=== PATIENT | female | born 1990 | race American Indian/Alaskan Native ===

== ENCOUNTER 2020-11-09 20:41 | Inpatient (IN) | payer BC, MEDICAID ==
--- NOTE | 2020-11-09 22:05 | History and Physical Report ---
History of Present Illness Date of examination: 11/09/20 (IUFD diagnosed on 20 wk scan) Date of admission: 11/09/20 20:41, pt not actually in room until 2144. Chief complaint: My baby doesn't have a heart beat. History of present illness: Pt presented for 20 week visit and scan 11/08 and it was discovered that there was no FHR. Pt wanted time to process the IUFD and went home after visit. She then called the office on 11/09 and wanted to get the IOL process started. EDC Confirmation: 03/29/2021 Gestational Age: 20 weeks on admission Past History : 3 Term Births: 1 Premature Births: 0 Living Children: 1 Para: 1 Mult. Births: 0 Prev : 0 Aborta: 1 Elect. Ab: 0 Spont. Ab: 1 Ectopics: 0 # 1 Delivery date: 2011 Weeks Gestation: 40 labor: no Delivery type: Hours of labor: 12 Anesthesia type: epidural Delivery location: [facility] Infant Sex: Female weight: [id number] Comments: no complications # 2 Delivery date: 2014 Weeks Gestation: 16 Delivery type: SAB Hours of labor: 24 Anesthesia type: none Delivery location: [facility] Comments: fell chasing after 1y.o and broke wrist, no FHTs, received medications in hospital Past Medical History: Negative Past Medical History Past Surgical History: negative Past Medical History Anesthesia Complications: negative Anemia: negative Autoimmune Disorder: negative Bleeding Disorder: negative Blood Transfusions: negative Breast Disease: negative Diabetes: negative Heart Disease: negative Hypertension: negative Hepatitis/Liver Disease: negative Kidney Disease/UTI: negative Neurologic/Epilepsy/Migraines: negative Phlebitis/Varicosities: negative Psychiatric: negative Pulmonary Disease/Asthma: negative Thyroid Disease: negative Hospitalizations: negative Surgery (Non-etl data architect): negative Abnormal PAP: positive, +HPV several years ago, negative result 2020 EDUARDO Exposure: negative Infertility: negative Uterine Anomaly: negative Uterine Surgery (not C/S): negative Other Gynecologic Problems: negative Infection History Hx of STD: HPV HIV Risk Eval: no Hepatitis B Risk Eval: low risk Personal hx. of genital herpes: no Partner hx. of genital herpes: no Rash, Viral, or Febrile illness since last LMP? no Varicella/Chicken Pox Status: Previous Disease TB Risk: no Genetic History Congenital Heart Defect: Mom: no Dad: no Dimple Disease: Mom: no Dad: no Thalassemia Mom: no Dad: no Neural Tube Defect Mom: no Dad: no Down's Syndrome Mom: no Dad: no Denver-Sachs Mom: no Dad: no Sickle Cell Disease/Trait Mom: no Dad: no Hemophilia Mom: no Dad: no Muscular Dystrophy Mom: no Dad: no Cystic Fibrosis Mom: no Dad: no Todd Chorea Mom: no Dad: no Mental Retardation Mom: no Dad: no Fragile X Mom: no Dad: no Other Genetic/Chromosomal Disorder Mom: no Dad: no Child w/other defect Mom: no Dad: no Enviromental Exposures Enviromental Exposures Reviewed Xray Exposure: no Medication, drug, or alcohol use since LMP: no Chemical/Other Exposure: no Exposure to Cat Liter: no Hx of Parvovirus (Fifth Disease): no Occupational Exposure to Children: none Current Allergies (reviewed today): * PCN (Critical) Past History Past Medical History: no pertinent history Past Surgical History: no surgical history Family/Genetic History: none Social history: no significant social history - Obstetrical History : 3 Para: 1 Hx # Term Pregnancies: 0 Number of Pregnancies: 0 Spontaneous Abortions: 1 (No FHR @ 16 wks. ) Induced : 0 Number of Living Children: 1 Medications and Allergies Allergies Allergy/AdvReac Type Severity Reaction Status Date / Time Penicillins Allergy Intermediate Hives Unverified 04/17/14 19:45 Home Medications Medication Instructions Recorded Confirmed Last Taken Type No Known Home Medications [No 04/19/14 04/19/14 Unknown History Reported Home Medications] Review of Systems All systems: negative - Physical Exam Breasts: Positive: deferred Cardiovascular: Regular rate Lungs: Positive: Normal air movement Genitourinary (Female): Positive: normal external genitalia, normal perenium Vulva: both: normal Vagina: Positive: normal moisture Uterus: Positive: normal size Extremities: Positive: normal - Obstetrical Cervical Dilatation: 0 Cervical Effacement Percentage: 0 station: -4 Results All other labs normal. Will draw admission labs and labs. Assessment and Plan A: 30 y.o. @ 20 weeks, IOL d/t IUFD. Cervical exam: cl/th/hi. - Patient Problems (1) 20 or more weeks gestation of Current Visit: Yes Status: Acute (2) IUFD at 20 weeks or more of gestation Current Visit: Yes Status: Acute Plan to address problem: Admit to labor and delivery. Draw and admission labs. Initiate IV. Cytotec 400mcg to start IOL process. Anticipate .
[2020-11-09] MEDS ORDERED: ePHEDrine SULFATE 50 MG/1 ML INJ IV PRN (22:08)
[2020-11-09] MEDS ORDERED: MINERAL OIL 30 ML ORAL LIQD PO PRN (22:08)
[2020-11-09] MEDS ORDERED: METHYLERGONOVINE MALEATE 0.2 MG/ML VIAL IM PRN (22:08)
[2020-11-09] MEDS ORDERED: NALOXONE 0.4 MG/1 ML INJ IV PRN (22:08)
[2020-11-09] MEDS ORDERED: fentaNYL 100 MCG/2 ML INJ IV PRN (22:08)
[2020-11-09] MEDS ORDERED: LOPERAMIDE 2 MG CAP PO PRN (22:08)
[2020-11-09] MEDS ORDERED: miSOPROStol 200 MCG TAB PR PRN (22:08)
[2020-11-09] MEDS ORDERED: CARBOPROST TROMETHAMINE 250 MCG/1 ML INJ IM PRN (22:08)
[2020-11-09] MEDS ORDERED: ONDANSETRON 4 MG/2 ML INJ IV PRN (22:08)
[2020-11-09] MEDS ORDERED: TERBUTALINE 1 MG/1 ML INJ SUB-Q PRN (22:08)
[2020-11-09] MEDS ORDERED: OXYTOCIN 10 UNIT/1 ML INJ IM PRN (22:08)
[2020-11-09] MEDS ORDERED: PROMETHAZINE 25 MG TAB PO PRN (22:08)
[2020-11-09] MEDS ORDERED: miSOPROStol 200 MCG TAB VG ONE (22:11)
[2020-11-09] MEDS ORDERED: ACETAMINOPHEN 500 MG TAB PO PRN (22:15)
[2020-11-09] MEDS ORDERED: LACTATED RINGERS 1,000 ML IV SCH (22:15)
[2020-11-09] MEDS ORDERED: OXYTOCIN DRIP 30 UNITS/500 ML BAG IV SCH (23:00)
[2020-11-09 23:41] LABS: Hematocrit 37.9 % (30.3-42.9); Hemoglobin 12.8 gm/dl (10.1-14.3); Mean Corpuscular HGB Conc 34 % (30-34); Mean Corpuscular Volume 90 fl (79-97); Platelet Count 307 K/mm3 (140-440); Red Blood Count 4.23 M/mm3 (3.65-5.03); Red Cell Distribution Width 13.7 % (13.2-15.2)
[2020-11-10] MEDS: BUTORPHANOL 2 MG/1 ML INJ IV PRN ×5 (00:48→11:46)
[2020-11-10 00:51] LABS: Hepatitis C Virus Antibody Non-Reactive (NonReactive)
[2020-11-10] MEDS ORDERED: miSOPROStol 200 MCG TAB VG ONE (05:15)
--- NOTE | 2020-11-10 05:18 | Event Note ---
Date: 11/10/20 (400mcg Cytotec placed) Placed a second dose of 400 mcg of Cytotec vaginally. Cervical exam still cl/th/hi. Pt denies vaginal bleeding, cramping/contractions, LOF. We discussed should any of these symptoms occur she will need to tell the RN immediately. Pt verbalized understanding.
--- NOTE | 2020-11-10 10:41 | Progress Note ---
Assessment and Plan - Patient Problems (1) 20 or more weeks gestation of Current Visit: Yes Status: Acute (2) IUFD at 20 weeks or more of gestation Current Visit: Yes Status: Acute Plan to address problem: -cont with IOL -cytotec at 11am and q4hrs until progression of labor -pain management d/w pt -plan of care d/w pt with RN at the bedside. All questions were addressed and answered. Subjective - Subjective Date of service: 11/10/20 Principal diagnosis: 20 wks IUFD Interval history: Pt inquired about the meds being given for the IOL and the pain she is having stating that previously the process was a lot quicker and "I only got one medicine for the pain and my inducement." I d/w that she is having her second delivery and she is further also and that due to having labor after a fall previously, she may have had more dilation compared to now where is is not dialated. I d/w serial IOL and that this process can sometimes take days until delivery. I d/w that the plan is to place more cytotec at 11am and proceed based on her progression this will determine if pitocin is then started or cervidil is given. She expressed understanding and questions were addressed and answered. Patient reports: new complaints, contractions Objective - Vital Signs Vital Signs: Vital Signs - 12hr 11/10/20 11/10/20 11/10/20 05:03 05:07 06:03 Temperature 98.2 F Pulse Rate 62 74 Respiratory 18 Rate Blood Pressure 115/57 106/58 O2 Sat by Pulse Oximetry 11/10/20 11/10/20 11/10/20 07:07 08:03 09:03 Temperature Pulse Rate 62 71 74 Respiratory Rate Blood Pressure 109/58 99/53 101/58 O2 Sat by Pulse Oximetry 11/10/20 11/10/20 11/10/20 10:00 10:03 10:11 Temperature 98 F Pulse Rate 86 81 Respiratory 20 Rate Blood Pressure 131/82 O2 Sat by Pulse 95 Oximetry 11/10/20 11/10/20 11/10/20 10:16 10:21 10:26 Temperature Pulse Rate 67 76 81 Respiratory Rate Blood Pressure O2 Sat by Pulse 96 96 97 Oximetry 11/10/20 10:31 Temperature Pulse Rate 73 Respiratory Rate Blood Pressure O2 Sat by Pulse 95 Oximetry - Exam Lungs: Normal air movement Abdomen: Present: normal appearance, soft. Absent: distention, tenderness, guarding Cervical Dilatation: 0.5 Cervical Effacement Percentage: 30 station: -3 - Labs Labs: Laboratory Results - last 24 hr 11/09/20 11/09/20 11/09/20 22:21 22:21 22:21 WBC 7.3 RBC 4.23 Hgb 12.8 Hct 37.9 MCV 90 MCH 30 MCHC 34 RDW 13.7 Plt Count 307 Syphilis IgG Antibody Nonreactive Hep Bs Antigen Hepatitis C Antibody HIV 1&2 Antibody Rapid HIV P24 Antigen Rubella IgG Antibody Blood Type O POSITIVE Antibody Screen Negative 11/09/20 11/09/20 11/09/20 22:21 22:21 22:21 WBC RBC Hgb Hct MCV MCH MCHC RDW Plt Count Syphilis IgG Antibody Hep Bs Antigen Non-reactive Hepatitis C Antibody Non-reactive HIV 1&2 Antibody Rapid Non react HIV P24 Antigen Non react Rubella IgG Antibody Immune Blood Type Antibody Screen
[2020-11-10] MEDS ORDERED: PROMETHAZINE 25 MG RECT SUPP PR PRN (12:06)
[2020-11-10] MEDS ORDERED: LANOLIN/ZINC/DIMETHICONE (LANSINOH) 7 GM TP PRN (12:06)
[2020-11-10] MEDS ORDERED: ONDANSETRON 4 MG/2 ML INJ IV PRN (12:06)
[2020-11-10] MEDS ORDERED: diphenhydrAMINE 25 MG CAP PO PRN (12:06)
[2020-11-10] MEDS ORDERED: MAGNESIUM HYDROXIDE (MOM) ORAL LIQD UDC PO PRN (12:06)
[2020-11-10] MEDS ORDERED: ACETAMINOPHEN 325 MG TAB PO PRN (12:06)
[2020-11-10] MEDS ORDERED: WITCH HAZEL/ GLYCERIN PAD TP PRN (12:06)
[2020-11-10] MEDS ORDERED: PROMETHAZINE 25 MG TAB PO PRN (12:06)
--- NOTE | 2020-11-10 12:06 | Procedure Note ---
OB Delivery Note - Delivery Date of Delivery: 11/10/20 Estimated blood loss: 100cc - Vaginal Delivery presentation: unknown Delivery induction: misoprostol Delivery laceration: none Delivery comments: Called to room by rn as pt had delivered fetus in the bed. When I arrived placenta was still attached. Cord cut and placenta delivered intact with gental tug and guidance out of the vagina as on initial exam the placenta was sitting in the vagina. Evalution of the the placenta notes brownish coloration of the fluid with odor as well as the placenta appears to have delivered intact. Due to pt discomfort, uterine sweep was not done. Will monitor bleeding for now and do sweep is bleeding becomes brisk. Cx still dilated on exam but unable to determine how dialted. Pt is stable in LDR requesting to eat at this time.
[2020-11-10] MEDS ORDERED: IBUPROFEN 600 MG TAB PO SCH (13:00)
[2020-11-11 01:56] LABS: Hemoglobin 11.3 gm/dl (10.1-14.3)
[2020-11-11] MEDS ORDERED: TETANUS,DIPH,PERTUSS(ACELL) VACCINE 0.5 ML SYRINGE IM ONE (06:00)
--- NOTE | 2020-11-11 07:26 | Progress Note ---
Assessment and Plan - Patient Problems (1) 20 or more weeks gestation of Current Visit: Yes Status: Acute (2) IUFD at 20 weeks or more of gestation Current Visit: Yes Status: Acute (3) Vaginal delivery Current Visit: Yes Status: Acute Plan to address problem: -routine pp care -d/c home this am Subjective - Subjective Date of service: 11/11/20 Principal diagnosis: PPD#1 s/p of IUFD @ 20 wks Interval history: Pt doing well. no c/o at this time. She inquired bout paper work for her job. She was advised to bring to the office on tomorrow and leave for completion. She and s/o expressed understanding. All other questions were addressed and answered Patient reports: appetite normal, pain well controlled Objective - Vital Signs Latest vital signs: Vital Signs Temp Pulse Resp BP BP Pulse Ox Pulse Ox 11/11/20 07:06 18 11/11/20 06:06 18 11/11/20 04:24 98.1 F 67 20 116/74 99 11/11/20 00:30 97.9 F 65 20 114/76 98 11/10/20 20:00 100 11/10/20 19:44 98.5 F 72 20 115/68 99 11/10/20 16:45 98 F 71 20 115/66 99 99 11/10/20 12:55 69 120/72 11/10/20 12:39 77 110/60 11/10/20 12:34 77 108/57 11/10/20 12:29 83 114/61 11/10/20 12:25 98 H 97 11/10/20 12:20 92 H 98 11/10/20 12:15 103 H 98 11/10/20 12:10 99 H 98 11/10/20 12:05 98 H 98 11/10/20 12:03 90 104/55 11/10/20 12:00 100 H 97 11/10/20 11:55 95 H 98 11/10/20 11:50 83 99 11/10/20 11:45 98 F 87 100 11/10/20 11:40 75 100 11/10/20 11:35 72 100 11/10/20 11:30 82 99 11/10/20 11:25 96 H 99 11/10/20 11:20 81 100 11/10/20 11:15 76 98 11/10/20 11:13 73 93 11/10/20 11:10 77 98 11/10/20 11:05 79 99 11/10/20 11:03 80 106/60 11/10/20 11:00 69 97 11/10/20 10:55 69 96 11/10/20 10:50 70 98 11/10/20 10:45 77 98 11/10/20 10:40 74 96 11/10/20 10:31 73 95 11/10/20 10:26 81 97 11/10/20 10:21 76 96 11/10/20 10:16 67 96 11/10/20 10:11 81 95 11/10/20 10:03 86 131/82 11/10/20 10:00 98 F 20 11/10/20 09:03 74 101/58 11/10/20 08:03 71 99/53 Intake and Output 11/10/20 11/11/20 11/11/20 22:59 06:59 14:59 Intake Total 360 360 Output Total 850 600 Balance -490 -240 Intake: Oral 120 120 Intake, Free Water 240 240 Output: Urine 850 600 Void 850 600 Other: Total, Intake Amount 120 120 Total, Output Amount 350 600 # Voids Void 1 - Exam Cardiovascular: Present: Normal S1, Normal S2 Lungs: Present: Clear to auscultation, Normal air movement Abdomen: Present: normal appearance, soft. Absent: distention Uterus: Present: normal, firm, fundal height below umbilicus Extremities: Present: normal. Absent: tenderness, edema Deep Tendon Reflex Grade: Normal +2
--- NOTE | 2020-11-11 07:26 | Discharge Summary ---
Providers - Providers Date of Admission: 11/09/20 20:41 Date of discharge: 11/11/20 Attending physician: DEVYN PENALOZA Primary care physician: DEVYN PENALOZA Hospitalization Reason for admission: IUFD Delivery: Episiotomy: none Laceration: none complications: none Discharge diagnosis: other (IUFD @ 20 wks) Hospital course: Pt had iol for IUFD @ 20 wks. She delivered w/o complications. PP course has not been complicated. She will f/u in the office in 4 to 6 wks. Condition at discharge: Good Disposition: DC-01 TO HOME OR SELFCARE - Discharge Diagnoses (1) 20 or more weeks gestation of Status: Acute (2) IUFD at 20 weeks or more of gestation Status: Acute Plan - Provider Discharge Summary Activity: routine, no sex for 6 weeks, no heavy lifting 4 weeks Diet: routine Instructions: routine Additional instructions: [] Smoking cessation referral if applicable(refer to patient education folder for contact #) [] Refer to [facility]'s [facility] Booklet Call your doctor immediately for: * Fever > 100.5 * Heavy vaginal bleeding ( >1 pad per hour) * Severe persistent headache * Shortness of breath * Reddened, hot, painful area to leg or breast * Drainage or odor from incision. * Keep incision clean and dry at all times and follow doctor's instructions regarding bathing/showering - Follow up plan Follow up: DEVYN PENALOZA MD [Primary Care Provider] - 7 Days Forms: [facility] Discharge Summary
[2020-11-11 08:40] VITALS: BP 131/66
== END 2020-11-11 09:00 | disposition home or self-care (01) | DRG 807 ==
LOC: LD 20:41 → OB 11-10 18:48
PROVIDERS: ADMIT Obstetrics & Gynecology; ATTEND Obstetrics & Gynecology
PROC: 10E0XZZ Delivery of Products of Conception, External Approach (ICD-10-PCS; 2020-11-10)
PROC: 3E033VJ Introduction of Other Hormone into Peripheral Vein, Percutaneous Approach (ICD-10-PCS; 2020-11-10)
PROC: 3E0234Z Introduction of Serum, Toxoid and Vaccine into Muscle, Percutaneous Approach (ICD-10-PCS; principal; 2020-11-11)
DX: O36.4XX0 Maternal care for intrauterine death, not applicable or unspecified (principal); Z37.1 Single stillbirth; Z20.822 Contact with and (suspected) exposure to COVID-19; Z23 Encounter for immunization; Z3A.20 20 weeks gestation of pregnancy
CPT/HCPCS: 36415; 85014; 85018; 85027; 86592; 86706; 86762; 86803; 86850; 86900; 86901; 87806; 96360; 96361; 96374; 96376; G0378; J0595; J2590; J3010; J7120; U0003